=== PATIENT | male | born 1995 | race Caucasian/White ===

== ENCOUNTER 2020-01-16 14:57 | Emergency (ER) | payer MEDICAID ==
--- NOTE | 2020-01-16 15:34 | EDM.PDOC ---
ED HPI GENERAL MEDICAL PROBLEM - General Chief Complaint: ENT Problem Stated Complaint: DENTAL COMPLAINT Time Seen by Provider: 01/16/20 15:25 Source of Information: Reports: Patient History Limitations: Reports: No Limitations - History of Present Illness INITIAL COMMENTS - FREE TEXT/NARRATIVE: 24-year-old male presents to the ED with severe dental pain arising from a badly fractured and decayed right upper molar tooth. Pain is radiating up into the right temporal scalp right ear and along his right mandible. He states the tooth is been in bad condition from decay for many years. 2 days ago a good portion of the tooth broke off while he was chewing. Yesterday he started to develop constant throbbing pain in the tooth not improved with topical Ampicil and high-dose Motrin. 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 Onset: Sudden Onset Date: 01/15/20 Onset Time: 18:00 Duration: Hour(s):, Getting Worse Location: Reports: Face (Pain right upper) Quality: Reports: Ache ( molar tooth), Throbbing, Other Severity: Severe (Sating) Improves with: Reports: None ( down to 10) Worsens with: Reports: Other (Exposure to cold air or cold fluids) Context: Reports: Other (Badly decayed right upper second molar tooth with recent fracture of the tooth.). Denies: Activity, Exercise ( increase the pain dramatically.), Lifting, Sick Contact, Trauma Associated Symptoms: Reports: No Other Symptoms Treatments RESIDENT MANAGER: Reports: NSAIDS (High-dose Motrin.) Right Jaw Pain Score (Numeric/FACES): 10 - Related Data Allergies Allergy/AdvReac Type Severity Reaction Status Date / Time No Known Allergies Allergy Verified 01/16/20 15:29 Home Meds: Home Meds Amoxicillin/Potassium Clav [Augmentin 500-125 Tablet] 1 each PO BID #16 tablet 01/16/20 [Rx] oxyCODONE HCl/Acetaminophen [Percocet 5-325 mg Tablet] 1 - 2 each PO Q4H PRN #20 tablet 01/16/20 [Rx] Social & Family History - Living Situation & Occupation Occupation: Employed ED ROS ENT - Review of Systems Review Of Systems: See Below Constitutional: Reports: Fatigue, Decreased Appetite. Denies: Fever, Chills, Malaise, Weakness, Weight Loss (Not being able to sleep.) HEENT: Reports: Dental Pain (Severe dental pain arising from right upper molar tooth) Respiratory: Reports: No Symptoms Cardiovascular: Reports: No Symptoms Endocrine: Reports: No Symptoms GI/Abdominal: Reports: No Symptoms : Reports: No Symptoms Musculoskeletal: Reports: No Symptoms Skin: Reports: No Symptoms Neurological: Reports: No Symptoms Psychiatric: Reports: No Symptoms Hematologic/Lymphatic: Reports: No Symptoms Immunologic: Reports: No Symptoms ED EXAM, ENT - Physical Exam Exam: See Below Exam Limited By: No Limitations General Appearance: Alert, WD/WN, No Apparent Distress, Other (Temperature is 36.9. Heart rate 73 and sinus respiratory is 20. BP 151 100. Pulse ox 98% room air) Eye Exam: Bilateral Eye: Normal Inspection (No blepharal pallor or scleral icterus.), PERRL Ears: Normal TMs Mouth/Throat: Dental Pain (She has a badly decayed and fractured right upper second molar tooth. There is only 20% of the tooth still present. No abscess along the gingiva that would be amenable to drainage.) Head: Atraumatic, Normocephalic Neck: Normal Inspection, Supple, Non-Tender, Full Range of Motion. No: Carotid Bruit, Lymphadenopathy (L), Lymphadenopathy (R) Course - Vital Signs Last Recorded V/S: Last Vital Signs Temp 36.9 C 01/16/20 15:22 Pulse 73 01/16/20 15:22 Resp 20 01/16/20 15:22 BP 151/100 H 01/16/20 15:22 Pulse Ox 98 01/16/20 15:22 - Radiology Interpretation Free Text/Narrative:: 24-year-old male presents to the ED for evaluation of dental pain right upper molar tooth. He has had a badly decayed right upper second molar tooth for many years but 2 days ago the tooth fractured losing approximately 40% of its volume. Currently has only about 20% of the tooth left. Initially he could get by with Ampicil and Motrin but last night the pain became constant throbbing and unable to sleep. 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 He is with a cold local intermodal truck driver who will help him get back to [place] where he is from. 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 Treated with Percocet 5/325 mg tabs 1 or 2 every 4-6 hours necessary for pain relief. Antibiotic to be Augmentin 500/125 mg tabs 1 tablet twice daily for the next 8 days to clear up dental infection. Follow-up with dentist as soon as able. Departure - Departure Time of Disposition: 15:32 Disposition: Home, Self-Care 01 Condition: Fair Clinical Impression: Dental infection - Discharge Information *PRESCRIPTION DRUG MONITORING PROGRAM REVIEWED*: Not Applicable *COPY OF PRESCRIPTION DRUG MONITORING REPORT IN PATIENT LISA: Not Applicable Prescriptions: Amoxicillin/Potassium Clav [Augmentin 500-125 Tablet] 1 each PO BID #16 tablet oxyCODONE HCl/Acetaminophen [Percocet 5-325 mg Tablet] 1 - 2 each PO Q4H PRN #20 tablet PRN Reason: pain relief. Referrals: PCP,Not In Area [Primary Care Provider] - Forms: ED Department Discharge Additional Instructions: Evaluation in the emergency room today in regards to dental pain arising from a badly fractured and decayed right upper molar tooth. At present there appears to be only about 20% of the tooth present. Treatment is to take antibiotic Augmentin 500/125 mg tablets 1 twice daily for the next 8 days to clear up dental infection. Continue Motrin 600 mg every 6 hours to reduce pain and inflammation. May use Percocet tabs 5/325 mg 1 or 2 every 4-6 hours for pain relief as well. Follow-up with dentist as soon as possible to have the tooth extracted. Sepsis Event Note (ED) - Evaluation Sepsis Screening Result: No Definite Risk - Focused Exam Vital Signs: Vital Signs Temp Pulse Resp BP Pulse Ox 01/16/20 15:22 36.9 C 73 20 151/100 H 98
== END 2020-01-16 15:46 | disposition home or self-care (01) ==
LOC: JD.ED 14:57
DX: K04.7 Periapical abscess without sinus (principal); Z79.899 Other long term (current) drug therapy
CPT/HCPCS: 99282